=== PATIENT | male | born 1995 | race Caucasian/White ===

== ENCOUNTER 2023-04-08 21:28 | Emergency (ER) | payer BC, SELFPAY ==
[2023-04-08 21:48] VITALS: BP 160/98; PULSE 68; RESP 16; TEMP 36.5; O2SAT 97; BMI 31.2
--- NOTE | 2023-04-08 22:09 | ED.DENTAL ---
HPI - Dental/Oral General Time Seen by Provider: 22:09 Date Seen: 04/08/23 Chief complaint: Dental/Oral/Mouth Injury/Pain Stated complaint: tooth pain Time Seen by Provider: 04/08/23 22:04 Source: patient and RN notes reviewed Mode of arrival: ambulatory Limitations: no limitations History of Present Illness HPI Narrative: Patient is a 27-year-old male accompanied by his significant other for concern of dental pain. He has a broken tooth in his mouth that has been there for over a month. It really started to to hurt recently, states he cannot take the pain. His been unable to secure a dental appointment up to this point, is still trying to get this done. Really was not bothering him until recently. He has had no fevers but started feeling cold tonight. He admits he has not really ate much today because of the pain in his mouth. They tell me that they have a wedding on Wednesday. MD Complaint: tooth pain Related Data Home Medications Medication Instructions Recorded Confirmed No Known Home Medications 04/08/23 04/08/23 Review of Systems Narrative: As per HPI [facility] Medical History (Updated 04/08/23 @ 22:21 by Cait Joaquin MD) No significant past medical history Surgical History (Updated 04/08/23 @ 22:12 by Bharat Mason RN) No significant past surgical history Social History Smoking Status: Never smoker Do you use any of these nicotine containing products: None Second hand tobacco smoke exposure: No How often do you have a drink containing alcohol: never How often do you have six or more drinks on one occasion: Never AUDIT-C Alcohol total score: 0 Non-prescribed substance use: denies use Exam Const: Vital Signs, click to edit/add: Vital Signs - 24 hr 04/08/23 21:48 Temperature 97.7 F Pulse Rate [Left P ulse Oximeter] 68 Respiratory Rate 16 Blood Pressure [Ri ght Upper Arm] 160/98 H Pulse Oximetry 97 Oxygen Delivery Me thod Room Air Documenting provider has reviewed patient's vital signs: yes Common normals: no apparent distress, average body habitus, oriented x3, no limitations, healthy appearing, alert and well nourished General appearance: cooperative, comfortable, well kempt and well developed Other: Very pleasant patient. Facial exam is normal. Oropharynx reveals the 1st left upper molar with feeling in it and part of that gone, can see underlying erythematous tissue. Do not see any surrounding gum line erythema or abscess at this time. Is definitely tender. No facial swelling, no submental masses or adenopathy, no cervical adenopathy. Eye: Common normals: PERRL, EOMs intact bilaterally, conjunctivae normal and no scleral icterus Conjunctiva: conjunctiva(e) normal Pupil: PERRL Cardio: Common normals: regular rate, regular rhythm, S1 normal heart sound, S2 normal heart sound, no gallops, no clicks and no murmurs Rate: regular rate Rhythm: regular rhythm Heart sounds: S1 normal and S2 normal Neuro: Common normals: oriented x3 Sensorium/orientation: alert Psych: Appearance: well kempt Course Course Hospital Course: We will initiate penicillin for probable developing abscess, did talk about the dental [id number] packing material, patient's significant other was able to find it through [employer]. They will try this as long as his tooth is not draining. Will give a small prescription of oxycodone, there are only 10 tablet packs left. Thus, cannot give a smaller amount of the 5 mg tabs of oxycodone. Vital Signs Vital signs: Initial Vital Signs Temperature 97.7 F 04/08/23 21:48 Temperature Source Temporal Artery Scan 04/08/23 21:48 Pulse Rate 68 04/08/23 21:48 Respiratory Rate 16 04/08/23 21:48 Blood Pressure 160/98 H 04/08/23 21:48 Blood Pressure Mean 118 H 04/08/23 21:48 Blood Pressure Position Sitting 04/08/23 21:48 Pulse Oximetry 97 04/08/23 21:48 Oxygen Delivery Method Room Air 04/08/23 21:48 Vital Signs Temperature 97.7 F 04/08/23 21:48 Pulse Rate 68 04/08/23 21:48 Respiratory Rate 16 04/08/23 21:48 Blood Pressure 160/98 H 04/08/23 21:48 Pulse Oximetry 97 04/08/23 21:48 Oxygen Delivery Method Room Air 04/08/23 21:48 Temperature 97.7 F 04/08/23 21:48 Pulse Rate 68 04/08/23 21:48 Respiratory Rate 16 04/08/23 21:48 Blood Pressure 160/98 H 04/08/23 21:48 Pulse Oximetry 97 04/08/23 21:48 Oxygen Delivery Method Room Air 04/08/23 21:48 Critical Care Time Critical Care Time Critical Care Time: No Discharge Plan Discharge Clinical Impression: Fracture of tooth Patient Disposition: Home, Self-Care Condition: Stable Instructions: Dental Abscess (ED), Toothache (ED) Additional Instructions: Start the Pen-VK and take as prescribed, 500 mg tablet 3 times a day for 10 days. Tylenol 1000 mg 3 times a day baseline for pain. Can use ibuprofen/Advil per bottle directions as needed for extra pain management. If your pain is severe, have given a prescription for oxycodone 5 mg every 6 hours as needed. This is narcotic, can be addicting, cause constipation, cannot drive or operate machinery while on it. Ultimately, you need to see a dentist for definitive treatment of this. If the infection is worsening with increased swelling, pain, fever, please seek re-evaluation. Activity Level: Activity as Tolerated Prescriptions: No Action No Known Home Medications Stand Alone Forms: [employer] Info Instructions
[2023-04-08 22:24] VITALS: BP 132/84; PULSE 74; RESP 16; TEMP 36.5; O2SAT 97
[2023-04-08 22:27] VITALS: BP 132/84; PULSE 74; RESP 16; TEMP 36.5
[2023-04-08] MEDS: KETOROLAC 30 MG/ML inj IM (22:27)
== END 2023-04-08 22:33 | disposition home or self-care (01) ==
PROVIDERS: Emergency Provider Family Medicine
DX: S02.5XXA Fracture of tooth (traumatic), initial encounter for closed fracture (principal)
CPT/HCPCS: 96372; 99283; J1885